=== PATIENT | male | born 1955 | race Caucasian/White ===

== ENCOUNTER → 2016-11-02 | Outpatient (CLI) | payer OTHER ==
[~2016-11-02] MED LIST: FLOMAX0.4 MG PO; PERCOCET7.5 PO; PHENERGAN PO
--- NOTE | ~2016-11-02 | ST ---
Unit #: [id number] #: [id number] Patient: JACKELYN RAMIREZ [id number] [address] [address] [id number] O MR#: [id number] NAME: JACKELYN RAMIREZ : 1955 SEX: M STUDY DATE/TIME: 11/02/2016 UNIT: CN ROOM: STUDY DESCRIPTION: Combinue stress nuclear/ECG Attending Physician: Salomón Greenberg M.D. Referring Physician: Salomón Greenberg M.D. Primary Care Physician: Carly Crews A.P.R.N. CARDIOLOGY REPORT EXAM Stress nuclear and ECG combined. INDICATION Dizziness, chest pain, prior tobacco abuse, family history of coronary artery disease, history of dyslipidemia. SUMMARY The patient walked on the treadmill to maximum effort, completing 9 minutes and 48 seconds of exercise. Technetium 99 Cardiolite 10.46 and 32.7 mCi was injected at rest and stress respectively. Appropriate views were obtained. FINDINGS The patient's heart rate increased from 79 to 144, and blood pressure increased 141/94 to 200/98. There was no chest discomfort reported. Heart rate was 90%. The resting ECG showed frequent PACs, but no diagnostic ST shifts either at rest or stress. There were no significant dysrhythmias either at rest or stress. Perfusion images demonstrate apical thinning, diaphragmatic artifact, but otherwise normal perfusion throughout the myocardium. Plan imaging demonstrates no significant patient motion either during acquisition of the rest or stress images. There is no significant lung uptake, LV or RV enlargement. Summed stress scores is 0. Gated perfusion wall motion analysis demonstrates normal wall motion throughout the myocardium with end-diastolic volume 94 mL, ejection fraction 54%. IMPRESSION 1. Myocardial perfusion scan shows artifact but is negative for ischemia or infarction. 2. Normal wall motion with good ejection fraction. 3. Good exercise capacity. 4. Normal heart rate response. 5. Borderline hypertensive blood pressure response. 6. Normal stress ECG. Unit #: [id number] #: [id number] Patient: JACKELYN RAMIREZ Dictated by... Warner Valdovinos/peter TD: 11/03/2016 17:04 JOB #: [id number] CARDIOLOGY REPORT Page 1 of 1 X Warner Cervantes MD CARDIOLOGY REPORT
== END | disposition home or self-care (01) ==
LOC: CNUC 08:17
DX: R94.31 Abnormal electrocardiogram [ECG] [EKG] (principal); R07.9 Chest pain, unspecified
CPT/HCPCS: 78452; 93017; A9500